=== PATIENT | female | born 1960 | race American Indian/Alaskan Native ===

== ENCOUNTER 2016-08-02 09:21 | Outpatient (CLI) | payer OTHER ==
--- NOTE | 2016-08-02 12:51 | Cat Scan Report ---
CT ABDOMEN WITHOUT CONTRAST INDICATION: Left renal mass. COMPARISON: 06/07/2015 FINDINGS: Noncontrast abdomen CT performed. LUNG BASES: Interval resolution of bilateral effusions and atelectasis. Heart size is also smaller, now within normal limits. Slight air-filled distal esophageal prominence. ABDOMEN: Please note that sensitivity to detect small visceral lesions is limited due to the absence of intravenous or oral contrast. Few tiny splenic calcified granulomas again noted as also 4 mm left renal calcification medially, axial image 34, series 2. Approximately 2 cm previously hyperdense/hemorrhagic 59 HU left upper renal lesion is now hypodense at 27 HU, axial image 28. Otherwise grossly unremarkable unenhanced liver, spleen gallbladder, pancreas, adrenals, nonaneurysmal abdominal aorta, IVC and kidneys. Nonopacified GI tract evaluation limited, though grossly nonobstructive. Unremarkable bones. CONCLUSION: No acute CT abnormality on this limited, unenhanced exam with interval clearing of lung bases and expected evolution of left upper renal hemorrhagic cyst, as described. Thank you for the opportunity to participate in this patient's care.
== END 2016-08-02 09:22 | disposition home or self-care (01) ==
LOC: CT 09:21
PROVIDERS: ATTEND Specialist
DX: N28.89 Other specified disorders of kidney and ureter (principal); N15.8 Other specified renal tubulo-interstitial diseases
CPT/HCPCS: 74150